=== PATIENT | male | born 1990 | race Caucasian/White ===

== ENCOUNTER 2017-05-21 23:23 | Emergency (ER) ==
[2017-05-21 23:32] VITALS: BP 171/95; TEMP 99.6; BMI 36.9
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
== END 2017-05-22 00:17 | disposition home or self-care (01) ==
LOC: ED 23:23
DX: S62.316A Displaced fracture of base of fifth metacarpal bone, right hand, initial encounter for closed fracture (principal); W22.8XXA Striking against or struck by other objects, initial encounter
CPT/HCPCS: 99283

== ENCOUNTER 2023-08-27 17:59 | Observation (INO) ==
[2023-08-27] MEDS ORDERED: SODIUM CHLORIDE 1,000 ML IV STA (18:13)
[2023-08-27 18:31] LABS: BASOPHILS % (AUTO) 0.4 % (0.0-3.0); EOSINOPHILS # (AUTO) 0.1 K/ul (0.0-0.7); HEMATOCRIT 42.3 % (42.0-52.0); HEMOGLOBIN 13.6 g/dl (14.0-18.0); IMMATURE GRANULOCYTE % (AUTO) 0.2 % (0.0-5.0); LYMPHOCYTES # (AUTO) 1.4 K/uL (0.60-3.4); LYMPHOCYTES % (AUTO) 13.9 (10.0-50.0); MEAN CORPUSCULAR HEMOGLOBIN 27.8 pg (27.0-31.0); MEAN CORPUSCULAR HGB CONC 32.2 (31.8-35.4); MEAN CORPUSCULAR VOLUME 86.5 fl (80.0-94.0); MONOCYTES # (AUTO) 0.9 K/uL (0.4-2.0); MONOCYTES % (AUTO) 8.7 (0-10); NEUTROPHILS # (AUTO) 7.8 K/ul (2.0-6.9); NEUTROPHILS % (AUTO) 75.8 % (42.2-75.2); PLATELET COUNT 381 10^3/uL (140-440); RDW COEFFICIENT OF VARIATION 12.6 % (11.6-14.8); RED BLOOD COUNT 4.89 10^6/ul (4.70-6.10); WHITE BLOOD COUNT 10.29 K/ul (4.2-10.2)
--- NOTE | 2023-08-27 18:34 | ED.PDOC ---
General ED Provider: Dr. DESI HERNANDEZ MD Chief Complaint: Chest Pain Stated Complaint: Patient presents for palpitations and chest pain. This started earlier today. He notes that he is a regular smoker of marijuana and does not typically have this sort of reaction. He does not believe it is associated with his smoking as he has done so every day since he was in his teens. No nausea. No vomiting. He has a known history of cardiac disease which does run in his family and he is concerned that he may be developing cardiac disease himself. His grandfather required multiple bypass surgeries. The pain is associated with mild chest pain on the left. No radiation to his arm or neck or jaw. No association with eating but he does have a known history of gastritis and does take medication for this. No nausea or vomiting. No headache. No fever. At time of arrival in the ER, he is visibly anxious and tearful. Heart rate is 140. After EKG and reassurance, heart rate self slows to the 80s and 90s. Time Seen by Provider: 08/27/23 18:07 Information Source: Patient Exam Limitations: No limitations Nursing and Triage Documentation Reviewed and Agree: Yes Review of Systems Review Of Systems Constitutional: Reports No symptoms; Denies Malaise, Weakness or Sweats Eyes: Denies Blindness, Blurred vision or Vision change Ears, Nose, Mouth, Throat: Denies Ear pain, Ear discharge or Nose pain Respiratory: Denies Cough, Shortness of Breath or Wheezing Cardiac: Reports Chest pain and Palpitations; Denies Edema or Irregular heart rate GI: Denies Abdomen distended, Constipated, Nausea or Vomiting : Reports Burning, Dysuria and Discharge Musculoskeletal: Reports Back pain; Denies Joint pain or Joint swelling Skin: Reports Bruising Neurological: Reports Anxiety All Other Systems: Reviewed and Negative Physical Exam Physical Exam Appearance: Reports Well-appearing and No pain distress Ill-appearing: None Pain Distress: None Eyes: Reports BRIDGET and EOMI ENT: Reports Ears normal Neck: Supple Respiratory: Reports Airway patent and Breath sounds equal Cardiovascular: Reports RRR and Pulses normal GI/: Reports Soft, Nontender and No masses Musculoskeletal: Reports Normal strength and ROM intact Skin: Reports Warm and Dry Neurological: Reports Sensation intact Psychiatric: Reports Affect appropriate Interpretation EKG Interpretation EKG Interpretation By: ED Physician Time of EKG #1: 01:47 Rate: Normal Rhythm: Sinus Ectopy: None [place]: NL ST Segment: Normal Interpretation: No STEMI Critical Care Note Critical Care Note Total Critical Care Time (mins): 0 Course Course 08/27/23 18:25 08/27/23 18:25 Orders, Labs, Meds: Lab Review 08/27/23 08/27/23 08/27/23 18:25 20:00 20:10 WBC 10.29 H RBC 4.89 Hgb 13.6 L Hct 42.3 MCV 86.5 MCH 27.8 MCHC 32.2 RDW Coeff of Angie 12.6 Plt Count 381 Immature Gran % (Auto) 0.2 Neut % (Auto) 75.8 H Lymph % (Auto) 13.9 [place] % (Auto) 8.7 Eos % (Auto) 1.0 Baso % (Auto) 0.4 Neut # (Auto) 7.8 H Lymph # (Auto) 1.4 [place] # (Auto) 0.9 Eos # (Auto) 0.1 Baso # (Auto) 0.0 Immature Gran # (Auto) 0.0 Sodium 141.7 Potassium 3.70 Chloride 106.9 Carbon Dioxide 24.3 Anion Gap 14.20 BUN 10.2 Creatinine 1.06 Estimated GFR (MDRD) 80.00 BUN/Creatinine Ratio 9.62 Glucose 101.6 Calcium 9.12 Total Bilirubin 0.68 AST 32.3 ALT 35.2 Alkaline Phosphatase 71.2 Troponin I < 0.012 < 0.012 Total Protein 8.44 H Albumin 4.54 Globulin 3.90 Albumin/Globulin Ratio 1.16 Urine Opiates Screen Negative Ur Oxycodone Screen Negative Urine Methadone Screen Negative Ur Barbiturates Screen Negative U Tricyclic Antidepress Negative Ur Phencyclidine Scrn Negative Ur Amphetamine Screen Negative U Methamphetamines Scrn Negative U Benzodiazepines Scrn Positive H Urine Cocaine Screen Negative U Cannabinoids Screen Positive H SARS CoV-2 RNA Rapid LISA Negative Orders Category Date Time Status EKG-(ED ONLY) Stat CARDIO 08/27/23 18:13 Completed CBC W/ AUTO DIFF Stat LAB 08/27/23 18:25 Completed CMP [COMPREHENSIVE METABOLIC PANEL] Stat LAB 08/27/23 18:25 Completed COVID [SARS COV-2 RNA RAPID LISA] Stat LAB 08/27/23 20:00 Completed DRUG SCREEN, URINE, RAPID Stat LAB 08/27/23 20:10 Completed TROPONIN I Stat LAB 08/27/23 18:25 Completed TROPONIN I Stat LAB 08/27/23 20:00 Completed Aspirin [Aspirin Chewable] Meds 08/27/23 19:58 Discontinued 324 mg PO ONCE STA Clonidine HCl [Catapres] Meds 08/27/23 20:23 Discontinued 0.2 mg PO ONCE ONE Hydralazine HCl Meds 08/27/23 18:37 Discontinued 10 mg IVP ONCE ONE Lorazepam Inj [Ativan] Meds 08/27/23 19:04 Discontinued 1 mg IVP ONCE ONE Sodium Chloride 0.9% [Sodium Chloride] 1,000 ml Meds 08/27/23 18:13 Discontinued IV BOLUS Medications Discontinued Medications Generic Name Dose Route Start Last Admin Trade Name Freq PRN Reason Stop Dose Admin Aspirin 324 mg 08/27/23 19:58 08/27/23 20:07 Aspirin 81 Mg Tab.Chew PO 08/27/23 19:59 324 mg ONCE STA Administration Clonidine 0.2 mg 08/27/23 20:23 08/27/23 20:31 Clonidine Hcl 0.1 Mg Tablet PO 08/27/23 20:24 0.2 mg ONCE ONE Administration Hydralazine HCl 10 mg 08/27/23 18:37 08/27/23 18:41 Hydralazine Hcl 20 Mg/Ml Sdv IVP 08/27/23 18:38 10 mg ONCE ONE Administration Sodium Chloride 1,000 mls @ 1,000 mls/hr 08/27/23 18:13 08/27/23 18:18 Sodium Chloride IV 08/27/23 19:12 1,000 mls/hr BOLUS STA Administration Lorazepam 1 mg 08/27/23 19:04 08/27/23 19:11 Lorazepam Inj 2 Mg/Ml Disp.Syringe IVP 08/27/23 19:05 1 mg ONCE ONE Administration Vital Signs: Temp Pulse Resp BP Pulse Ox 08/27/23 19:37 119 H 18 159/93 H 100 08/27/23 18:06 98.0 F 150 H 20 165/97 H 100 NEEMA Risk Score NEEMA Risk Score: Risk Score Odds of by 30D 0 0.1 (0.1-0.2) 1 0.3 (0.2-0.3) 2 0.4 (0.3-0.5) 3 0.7 (0.6-0.9) 4 1.2 (1.0-1.5) 5 2.2 (1.9-2.6) 6 3.0 (2.5-3.6) 7 4.8 (3.8-6.1) Discharge Plan Discharge Patient Disposition: PLACED OBSERVATION Discharge Problem: Tachycardia, Chest pain Did you review [place] BUSINESS DEVELOPMENT DIRECTOR for ALL controlled substances?: Not Applicable ED Provider: DESI HERNANDEZ Physician Progress Note: [MDM CHEST PAIN OBS Patient presents with chest pain without signs of acute ischemia on ECG. Troponin negative. Aspirin given in ER. Patient remained with tachycardia of 110-120 even after anxiety medication (Ativan). BP improved with hydralazine. Suspect unmanaged HTN prior to today's evaluation. Low Wells score with low risk for PE and no significant hypoxia. Given exam and history, low suspicion for dissection. No ectopy noted on monitor and patient well appearing. Had conversation with pt at length regarding risks vs benefits of admission to obs for chest pain. [place] decision making for patient to be admitted to obs, and agrees to workup. Low suspicion for overt ACS but given age and persistence of symptoms, plan to admit to obs for serial troponins, serial EKGs, and risk stratification as inpatient.
[2023-08-27] MEDS ORDERED: HYDRALAZINE HCL IVP ONE (18:37)
[2023-08-27 18:43] LABS: ALANINE AMINOTRANSFERASE 35.2 U/L (0-50); ALBUMIN 4.54 g/dL (3.5-5.0); ALKALINE PHOSPHATASE 71.2 U/L (38-126); ASPARTATE AMINO TRANSFERASE 32.3 U/L (17-59); BILIRUBIN,TOTAL 0.68 mg/dL (0.2-1.3); BLOOD UREA NITROGEN 10.2 mg/dL (9-20); CALCIUM 9.12 mg/dL (8.4-10.2); CARBON DIOXIDE 24.3 mmol/L (22-30.0); CHLORIDE 106.9 mmol/L (98-107); CREATININE 1.06 mg/dL (0.60-1.10); GLUCOSE 101.6 mg/dL (74-106); SODIUM 141.7 mmol/L (134.5-145); TOTAL PROTEIN 8.44 g/dL (6.3-8.2)
[2023-08-27 18:54] LABS: TROPONIN I < 0.012 ng/ml (0.0000-0.120)
[2023-08-27] MEDS ORDERED: ATIVAN IVP ONE (19:04)
[2023-08-27] MEDS ORDERED: ASPIRIN CHEWABLE PO STA (19:58)
[2023-08-27 20:19] LABS: SARS COV-2 RNA RAPID NAAT NEGATIVE (NEGATIVE)
[2023-08-27] MEDS ORDERED: CATAPRES PO ONE (20:23)
[2023-08-27 20:26] LABS: AMPHETAMINE SCREEN,URINE NEGATIVE (NEGATIVE); BARBITURATE SCREEN,URINE NEGATIVE (NEGATIVE); BENZODIAZEPINES SCREEN,URINE POSITIVE (NEGATIVE); CANNABINOID SCREEN,URINE POSITIVE (NEGATIVE); COCAIN SCREEN,URINE NEGATIVE (NEGATIVE); METHADONE URINE SCREEN NEGATIVE (NEGATIVE); METHAMPHETAMINES SCREEN,URINE NEGATIVE (NEGATIVE); OPIATE SCREEN,URINE NEGATIVE (NEGATIVE); OXYCODONE URINE SCREEN NEGATIVE (NEGATIVE); PHENCYCLIDINE SCREEN,URINE NEGATIVE (NEGATIVE); TRICYCLIC ANTIDEPRESSANTS URIN NEGATIVE (NEGATIVE)
[2023-08-27 21:56] VITALS: BMI 47.4
[2023-08-27] MEDS: TYLENOL PO PRN (22:15)
[2023-08-27] MEDS: SODIUM CHLORIDE 1,000 ML IV SCH (22:16)
[2023-08-28 05:16] VITALS: TEMP 97.8
[2023-08-28] MEDS: SODIUM CHLORIDE 1,000 ML IV SCH ×2 (05:41→07:10)
[2023-08-28] MEDS ORDERED: ASPIRIN CHEWABLE PO SCH (07:30)
[2023-08-28 07:32] LABS: BASOPHILS % (AUTO) 0.7 % (0.0-3.0); EOSINOPHILS # (AUTO) 0.1 K/ul (0.0-0.7); EOSINOPHILS % (AUTO) 2.1 % (0.0-7.0); HEMATOCRIT 40.4 % (42.0-52.0); HEMOGLOBIN 12.9 g/dl (14.0-18.0); IMMATURE GRANULOCYTE % (AUTO) 0.2 % (0.0-5.0); LYMPHOCYTES # (AUTO) 0.9 K/uL (0.60-3.4); LYMPHOCYTES % (AUTO) 15.2 (10.0-50.0); MEAN CORPUSCULAR HEMOGLOBIN 28.1 pg (27.0-31.0); MEAN CORPUSCULAR HGB CONC 31.9 (31.8-35.4); MONOCYTES # (AUTO) 0.7 K/uL (0.4-2.0); MONOCYTES % (AUTO) 11.9 (0-10); NEUTROPHILS # (AUTO) 4.3 K/ul (2.0-6.9); NEUTROPHILS % (AUTO) 69.9 % (42.2-75.2); PLATELET COUNT 337 10^3/uL (140-440); RDW COEFFICIENT OF VARIATION 12.9 % (11.6-14.8); RED BLOOD COUNT 4.59 10^6/ul (4.70-6.10); WHITE BLOOD COUNT 6.11 K/ul (4.2-10.2)
[2023-08-28 07:52] LABS: ALANINE AMINOTRANSFERASE 32.6 U/L (0-50); ALBUMIN 4.07 g/dL (3.5-5.0); ALKALINE PHOSPHATASE 55.8 U/L (38-126); ASPARTATE AMINO TRANSFERASE 30.7 U/L (17-59); BILIRUBIN,TOTAL 0.65 mg/dL (0.2-1.3); BLOOD UREA NITROGEN 8.6 mg/dL (9-20); CALCIUM 8.47 mg/dL (8.4-10.2); CARBON DIOXIDE 24.7 mmol/L (22-30.0); CHLORIDE 106.7 mmol/L (98-107); CHOLESTEROL 218.2 mg/dL (0-200); CREATININE 0.81 mg/dL (0.60-1.10); GLUCOSE 100.9 mg/dL (74-106); HDL CHOLESTEROL 43.3 mg/dL (35-60); LDL CHOLESTEROL,CALCULATED 162 mmol/L; POTASSIUM 3.82 mmol/L (3.5-5.1); SODIUM 139.9 mmol/L (134.5-145); TOTAL PROTEIN 7.55 g/dL (6.3-8.2); TRIGLYCERIDES 62.9 mg/dL (0-150); VLDL CHOLESTEROL 13 mg/dL (2-30)
[2023-08-28 08:07] LABS: TROPONIN I < 0.012 ng/ml (0.0000-0.120)
[2023-08-28] MEDS: TYLENOL PO PRN (08:28)
[2023-08-28] MEDS ORDERED: ZESTRIL PO SCH (09:00)
[2023-08-28 09:40] VITALS: BP 151/95; PULSE 81; RESP 22
[2023-08-28] MEDS ORDERED: ZESTRIL PO ONE (11:07)
--- NOTE | 2023-08-28 12:22 | PCM.SS ---
Provider Provider[facility] FLOWERS, [facility] Date Admission Date: 08/27/23 Discharge Date Discharge Date: 08/28/23 Chief Complaint Reason For Visit: TACHYCARDIA History of Present Illness History of Present Illness: Admitted 08/27/23 20:47, this 32 year old /WHITE/M presented to the ER with complaints of chest pain. States that the pain started when he was sitting at home on his couch after work. Reports he has hx of anxiety and smokes marijuana to assist with this. Smoked and the pain did not resolve. Describes the pain as an ache that is located midsternal and radiates to his left chest to his left arm and back. Denies any injuries that he is aware of. No aggravating or alleviating factors. Treated with marijuana unsuccessfully. Denies any pmh but does have family history of heart disease. Denies any shortness of breath, leg swelling, fever, chills, body aches, reflux symptoms, or other complaints. [facility] Medical History Anxiety F41.9 - Anxiety disorder, unspecified (ICD-10) Family History MATERNAL GRANDMOTHER Diabetes PATERNAL GRANDFATHER Hx of CABG Social History Smoking and tobacco status: Former smoker Tobacco: How many years used: 15 Alcohol intake: never Substance use type: marijuana Medications Mecications: Medications at Discharge (Home Meds & RX) lisinopril 20 mg tablet 20 mg PO BID #60 tabs 08/28/23 Allergies Allergies Allergy/AdvReac Type Severity Reaction Status Date / Time No Known Drug Allergies AdvReac Verified 08/27/23 22:02 Review of Systems Constitutional: Reports No symptoms Head: Reports Normocephalic Eyes: Reports No symptoms Ears: Reports No symptoms Nose: Reports No symptoms Mouth: Reports No symptoms Throat: Reports No symptoms Cardiovascular: Reports Chest pain Respiratory: Reports No symptoms Gastrointestinal: Reports No symptoms Genitourinary: Reports No Symptoms Musculoskeletal: Reports No symptoms Endocrine: Reports No symptoms Hematology: Reports No symptoms Immunology: Reports No symptoms Neurological: Reports No symptoms Psychiatric: Reports No symptoms Physical Examination Appearance: Positive No Apparent Distress, Alert and Oriented x3 and Obese Head: Positive Normocephalic and Atraumatic Eyes: Positive BRIDGET Neck: Positive Supple, Non-Tender and Trachea Midline Heart: Positive RRR and No Murmurs Respiratory: Positive Airway patent, Breath Sounds Clear, Bilaterally, Breath Sounds Equal and Respirations Nonlabored GI/: Positive Soft, Nontender, Bowel sounds normal, No Distention and No masses Extremities: Positive Pedal Pulses Palpable Bilaterally Neurological: Positive Normal Gait, Recent Memory Intact, Remote Memory Intact, Sensation Intact, Motor Intact, Reflexes Intact, Alert and Oriented Psychiatric: Positive Normal Judgement, Normal Insight, Affect Appropriate, Mood Appropriate and Other Vital Signs (Last 4 Hours) Vital Signs Last 4 Hours: Vital Signs: Last 4 Hours 08/28/23 09:00 08/28/23 09:38 08/28/23 09:39 Temperature 97.8 F Temperature Source Oral Pulse Rate 81 Respiratory Rate 22 H Blood Pressure 151/95 H Blood Pressure Mean 113 Blood Pressure Location Left Arm Blood Pressure Position Sitting O2 Sat by Pulse Oximetry 93 L Oxygen Delivery Method Room Air Room Air Room Air 08/28/23 10:50 08/28/23 12:00 Temperature Temperature Source Pulse Rate Respiratory Rate Blood Pressure Blood Pressure Mean Blood Pressure Location Blood Pressure Position O2 Sat by Pulse Oximetry Oxygen Delivery Method Room Air Room Air Labs This Visit Labs This Visit: Labs This Visit 08/27/23 08/27/23 08/27/23 18:25 20:00 20:10 WBC 10.29 H RBC 4.89 Hgb 13.6 L Hct 42.3 MCV 86.5 MCH 27.8 MCHC 32.2 RDW Coeff of Angie 12.6 Plt Count 381 Immature Gran % (Auto) 0.2 Neut % (Auto) 75.8 H Lymph % (Auto) 13.9 [place] % (Auto) 8.7 Eos % (Auto) 1.0 Baso % (Auto) 0.4 Neut # (Auto) 7.8 H Lymph # (Auto) 1.4 [place] # (Auto) 0.9 Eos # (Auto) 0.1 Baso # (Auto) 0.0 Immature Gran # (Auto) 0.0 Sodium 141.7 Potassium 3.70 Chloride 106.9 Carbon Dioxide 24.3 Anion Gap 14.20 BUN 10.2 Creatinine 1.06 Estimated GFR (MDRD) 80.00 BUN/Creatinine Ratio 9.62 Glucose 101.6 Hemoglobin A1c Calcium 9.12 Total Bilirubin 0.68 AST 32.3 ALT 35.2 Alkaline Phosphatase 71.2 Troponin I < 0.012 < 0.012 Total Protein 8.44 H Albumin 4.54 Globulin 3.90 Albumin/Globulin Ratio 1.16 Triglycerides Cholesterol LDL Cholesterol, Calc VLDL Cholesterol HDL Cholesterol Cholesterol/HDL Ratio Urine Opiates Screen Negative Ur Oxycodone Screen Negative Urine Methadone Screen Negative Ur Barbiturates Screen Negative U Tricyclic Antidepress Negative Ur Phencyclidine Scrn Negative Ur Amphetamine Screen Negative U Methamphetamines Scrn Negative U Benzodiazepines Scrn Positive H Urine Cocaine Screen Negative U Cannabinoids Screen Positive H SARS CoV-2 RNA Rapid LISA Negative 08/28/23 08/28/23 02:08 07:19 WBC 6.11 RBC 4.59 L Hgb 12.9 L Hct 40.4 L MCV 88.0 MCH 28.1 MCHC 31.9 RDW Coeff of Angie 12.9 Plt Count 337 Immature Gran % (Auto) 0.2 Neut % (Auto) 69.9 Lymph % (Auto) 15.2 [place] % (Auto) 11.9 H Eos % (Auto) 2.1 Baso % (Auto) 0.7 Neut # (Auto) 4.3 Lymph # (Auto) 0.9 [place] # (Auto) 0.7 Eos # (Auto) 0.1 Baso # (Auto) 0.0 Immature Gran # (Auto) 0.0 Sodium 139.9 Potassium 3.82 Chloride 106.7 Carbon Dioxide 24.7 Anion Gap 12.32 BUN 8.6 L Creatinine 0.81 Estimated GFR (MDRD) 110.00 BUN/Creatinine Ratio 10.61 Glucose 100.9 Hemoglobin A1c 5.47 Calcium 8.47 Total Bilirubin 0.65 AST 30.7 ALT 32.6 Alkaline Phosphatase 55.8 Troponin I < 0.012 < 0.012 Total Protein 7.55 Albumin 4.07 Globulin 3.48 Albumin/Globulin Ratio 1.16 Triglycerides 62.9 Cholesterol 218.2 H LDL Cholesterol, Calc 162 VLDL Cholesterol 13 HDL Cholesterol 43.3 Cholesterol/HDL Ratio 5.0 Urine Opiates Screen Ur Oxycodone Screen Urine Methadone Screen Ur Barbiturates Screen U Tricyclic Antidepress Ur Phencyclidine Scrn Ur Amphetamine Screen U Methamphetamines Scrn U Benzodiazepines Scrn Urine Cocaine Screen U Cannabinoids Screen SARS CoV-2 RNA Rapid LISA Review Review Statement: I have independently reviewed and interpreted the labs/EKGs/imaging that were ordered by the ER provider. I have reviewed all outside records that are a vailable currently in our EMR including imaging/notes/labs from previous visits. Plan Reccomendations/Plan: 1. Chest Pain - serial troponins completed and negative, lipid panel and hemoglobin A1c normal. thyroid panel pending - send out test, no pain present on my exam 2. Hypertension - uncontrolled, never been on medication, started on lisinopril 20 mg daily - showed minimal relief, prescribed BID 3. Anxiety - discussed to talk to PCP about medications once heart conditions r/o Additional Planning: Case discussed with ED Physician, Dr. Patel. DVT Prophylaxis: Ambulation, Up ad michelle [facility] Plannin minutes spent discussing advance care planning. Smoking Cessation: 5 minutes spent discussing smoking cessation. Disposition: Admit to: Discussed Plan of Care with Dr. Richard Pérez If patient discharged with Left Ventricular Systolic Dysfunction: NA Discharged with a beta jeffrey? [] If no, why not? [] Discharged with an nelida/arb? [] If no, why not? [] Cardiac Diet Activity as tolerated Start taking: ASA 81 mg daily OTC, Lisinopril 20 mg BID Follow-up with PCP next week Review With Patient Reviewed with Patient and Family: Patient and family have been counseled on condition and care plan and have no immediate questions. I have personally discussed and reviewed the patient's visit/current labs/imaging/decision making with Dr. Martir Pérez, my supervising attending. Total number of minutes spent with patient 85 min. More than 50% of the time spent with this patient was devoted to counseling and coordination of care. Time of Admission:08/27/23 20:47 Time of Discharge: 08/28/23 11:00 Discharge Plan Discharge Discharge Orders: Discharge Patient (ONCE); Ordered 08/28/23 Ordered By: LUIS ALFREDO FRANKEL Activity Restrictions/Additional Instructions: Cardiac Diet Activity as tolerated Start taking: Aspirin 81 mg daily - purchase over the counter Lisinopril 40 mg daily YOU HAVE A HOSPITAL FOLLOW UP/ NEW PATIENT APPOINTMENT WITH DR. AYERS ON August AT 9AM. SHOULD YOU HAVE ANY QUESTIONS OR NEED TO RESCHEDU LE YOU CAN CONTACT THEIR OFFICE AT [phone]. Instructions: Chest Pain (GEN), Hypertension (GEN), Anxiety (GEN) Patient Disposition: HOME SELF-CARE Prescriptions: New lisinopril 20 mg tablet 20 mg PO BID Qty: 60 0RF Did you review [place] SERVICE DESK ASSOCIATE for ALL controlled substances?: No Discussed opioids are addictive and Narcan is available by prescription or from pharmacy.: No Condition: Fair
[2023-08-29 07:18] LABS: FREE THYROXINE INDEX 2.6 (1.2-4.9); THYROXINE (T4) 8.8 ug/dL (4.5-12.0); TSH 1.81 uIU/mL (0.450-4.500)
== END 2023-08-28 13:09 | disposition home or self-care (01) ==
LOC: ED 17:59 → MEDSURG B 17:59
PROVIDERS: ADMIT Hospitalist; ATTEND Nurse Practitioner Family
DX: Z20.822 Contact with and (suspected) exposure to COVID-19; R00.0 Tachycardia, unspecified; F41.9 Anxiety disorder, unspecified; R07.9 Chest pain, unspecified; I10 Essential (primary) hypertension; M54.9 Dorsalgia, unspecified